=== PATIENT | male | born 1965 | race Caucasian/White ===

== ENCOUNTER 2019-09-06 14:02 | Emergency (ER) | payer MEDICAID, MEDICARE ==
[~2019-09-06] VITALS: Ht 182.9 cm; Wt 85.5 kg
[~2019-09-06 14:02] MED LIST: LOP25T PO; NOR5T PO; ZES10T PO
[2019-09-06 14:53] LABS: BASOPHILS # (AUTO) 0.1 X10'3 (0-0.2); BASOPHILS % (AUTO) 0.8 % (0-1); EOSINOPHILS % (AUTO) 0.5 % (0-6); HEMATOCRIT 49.3 % (42.0-52.0); HEMOGLOBIN 17.1 g/dl (14.0-17.9); LYMPHOCYTES # (AUTO) 2.3 X10'3 (1.1-4.8); LYMPHOCYTES % (AUTO) 25.6 % (21-51); MEAN CORPUSCULAR HEMOGLOBIN 32.3 PG (27.0-31.0); MEAN CORPUSCULAR HGB CONC 34.7 g/dL (33.0-36.5); MEAN CORPUSCULAR VOLUME 93.2 FL (78-98); MEAN PLATELET VOLUME 9.5 FL (7.4-10.4); MONOCYTES # (AUTO) 0.7 X10'3 (0-0.9); MONOCYTES % (AUTO) 8.3 % (2-12); NEUTROPHILS # (AUTO) 5.8 X10'3 (1.8-7.7); NEUTROPHILS % (AUTO) 64.8 % (42-75); PLATELET COUNT 253 X10'3 (140-440); RED CELL DISTRIBUTION WIDTH 12.9 % (11.5-14.5); WHITE BLOOD COUNT 8.9 X10'3 (4.5-11.0)
[2019-09-06 15:08] LABS: ALANINE AMINOTRANSFERASE 61 U/L (12-78); ALBUMIN 4.5 G/DL (3.4-5.0); ALBUMIN/GLOBULIN RATIO 1.3 (1.1-1.5); ALKALINE PHOSPHATASE 92 IU/L (46-116); ANION GAP 9 (8-16); ASPARTATE AMINO TRANSFERASE 30 U/L (10-37); BILIRUBIN,TOTAL 0.6 MG/DL (0.1-1.0); BLOOD UREA NITROGEN 14 MG/DL (7-18); CALCIUM 9.3 MG/DL (8.5-10.1); CHLORIDE 102 MMOL/L (99-107); CREATININE 1.08 MG/DL (0.60-1.10); GLUCOSE 134 MG/DL (70-104); POTASSIUM 3.7 MMOL/L (3.5-5.1); SODIUM 137 MMOL/L (135-145); TOTAL PROTEIN 8.1 G/DL (6.4-8.2); eGFR 71 ML/MIN
--- NOTE | 2019-09-06 16:03 | NUR ---
Pt describes intermittant chest discomfort and rt head pressure that coincides with elevation in his blood pressure. Pt takes BP medications. Pt sees Dr Cotton and had a clear stress test approx 3 years ago.
[2019-09-06] MEDS ORDERED: hyDRALAzine 10mg tablet PO STA (16:15)
[2019-09-06 17:19] VITALS: BP 138/86
[2019-09-06] MEDS ORDERED: LISI-600 PO (17:21)
[2019-09-06] MEDS ORDERED: METO25TA6 PO (17:21)
== END 2019-09-06 17:29 | disposition home or self-care (01) ==
LOC: ER 14:03
DX: I10 Essential (primary) hypertension (principal); R51 Headache; Z79.899 Other long term (current) drug therapy
CPT/HCPCS: 36415; 71045; 80053; 84484; 85025; 93005; 99284